=== PATIENT | female | born 1950 | race Caucasian/White ===

== ENCOUNTER → 2023-11-16 16:21 | Outpatient (REF) | payer MEDICARE, SELFPAY | LOC: HWWDC 16:21 | PROVIDERS: ATTENDING PHYSICIAN Family Medicine | DX: Z12.31 Encounter for screening mammogram for malignant neoplasm of breast (principal) | CPT/HCPCS: 77063; 77067 ==

== ENCOUNTER → 2024-12-22 06:52 | Outpatient (REF) | payer MEDICARE, SELFPAY | LOC: HWWDC 06:52 | PROVIDERS: ATTENDING PHYSICIAN Family Medicine | DX: Z12.31 Encounter for screening mammogram for malignant neoplasm of breast (principal) | CPT/HCPCS: 77063; 77067 ==